=== PATIENT | female | born 1950 | race Caucasian/White ===

== ENCOUNTER 2022-04-17 19:02 | Emergency (ER) | payer MEDICARE, OTHER ==
[~2022-04-17] VITALS: Ht 170.2 cm; Wt 96.8 kg
[~2022-04-17 19:02] MED LIST: AUGMENTIN875TAB OR; CIPROFLOXACN500 MG PO; FLEXERIL10 MG PO; MECLIZINE12.5 MG PO; MEDDOSEPAK OR; NAPROXEN500 MG PO; ULTRAM50 MG OR
[2022-04-17] MEDS ORDERED: NAPROXEN500 MG PO (23:44)
[2022-04-18 00:16] VITALS: BP 142/68
== END 2022-04-18 00:16 | disposition home or self-care (01) ==
LOC: ED 19:02
DX: S43.401A Unspecified sprain of right shoulder joint, initial encounter (principal); I10 Essential (primary) hypertension; W18.2XXA Fall in (into) shower or empty bathtub, initial encounter; Y92.002 Bathroom of unspecified non-institutional (private) residence as the place of occurrence of the external cause